=== PATIENT | female | born 1995 | race Caucasian/White ===

== ENCOUNTER 2016-08-31 14:35 | Observation (INO) ==
[2016-08-31] MEDS ORDERED: LACTATED RINGERS 1,000 ML IV ONE (15:18)
[2016-08-31] MEDS: LACTATED RINGERS 1,000 ML IV SCH ×2 (15:28→19:41)
[2016-08-31] MEDS ORDERED: TERBUTALINE 1 MG/1 ML VIAL SUBCUT ONE (15:35)
[2016-08-31 16:20] LABS: Amorphous Crystals,Urine Occasional /HPF (Few); Apearance,Urine Slightly Hazy (Clear); Bilirubin,Urine Negative (Negative); Blood, Urine Negative (Negative); Glucose,Urine (UA) Negative (Negative); Ketones,Urine Negative (Negative); Mucus,Urine Occasional /LPF (Occasional); Nitrite,Urine Negative (Negative); Protein,Urine Negative; RBC,Urine 1 /HPF (0-4); Urine Color Yellow (Yellow); Urine Specific Gravity 1.017 (1.001-1.035); Urine Urobilinogen < 2.0 EU/DL (0.2-1.0); WBC,Urine 2 /HPF (0-6)
[2016-08-31] MEDS: NIFEdipine 10 MG CAPSULE PO SCH ×2 (16:30→21:08)
[2016-08-31] MEDS ORDERED: ACETAMINOPHEN 500 MG TABLET PO PRN (16:59)
[2016-08-31] MEDS: BETAMETH SODIUM PHOS/ACETATE 30 MG/5 ML VIAL IM SCH (17:10)
[2016-08-31] MEDS ORDERED: MEPERIDINE 50 MG/1 ML VIAL IV PRN (18:11)
[2016-08-31] MEDS ORDERED: ONDANSETRON 4 MG/2 ML VIAL IV PRN (18:11)
[2016-08-31 18:31] LABS: Basophils # 0.1 10*3/uL (0.0-0.2); Basophils % 0.3 % (0.0-0.8); Eosinophils # 0.1 10*3/uL (0.0-0.87); Eosinophils % 0.5 % (0.00-10.9); Hemoglobin 12.1 GM/DL (12.0-16.0); Immature Granulocytes % 1.2 %; Immature Granulocytes Absolute 0.22 #; Lymphocytes # 1.4 10*3/uL (1.4-4.0); Lymphocytes % 7.4 % (21.3-54.2); Mean Corpuscular HGB Conc 34.6 GM/DL (32-36); Mean Corpuscular Hemoglobin 32 PG (27-34); Mean Corpuscular Volume 91.1 FL (87-102); Mean Platelet Volume 10.2 FL (9.6-12.0); Monocytes # 0.9 10*3/uL (0.11-0.8); Monocytes % 4.8 % (1.7-12.7); Neutrophils # 16.2 10*3/uL (1.4-7.4); Neutrophils % 85.8 % (38.7-73.9); Platelet Count 280 T/CUMM (130-400); Red Blood Count 3.84 MC/CUMM (3.8-5.5); Red Cell Distribution Width 13.4 % (9.3-17.3); White Blood Count 18.9 T/CUMM (4-12)
[2016-09-01] MEDS: NIFEdipine 10 MG CAPSULE PO SCH ×3 (00:36→08:35)
[2016-09-01] MEDS: LACTATED RINGERS 1,000 ML IV SCH (00:44)
[2016-09-01] MEDS: BETAMETH SODIUM PHOS/ACETATE 30 MG/5 ML VIAL IM SCH (05:28)
[2016-09-01 08:17] VITALS: BP 128/62
--- NOTE | 2016-09-01 09:21 | OB/GYN Progress Note ---
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 She was sent from clinic yesterday to be monitored for labor secondary to 4 cm dilated. After consultation with Dr. Pedro on yesterday, she recommend observe overnight , give rescue doses of steroids, continue Procardia and monitor for cervical change on today. Patient denies any vaginal bleeding, contractions, pressure, or decreased FM. She states she notices some contractions when she has a full bladder. She denies any other problems. Records available and reviewed, are current and up to date. ROS: Neuro negative, CV negative, GI negative, negative O: Alert, awake, and oriented x 3 HEENT WNL Lungs CTA bilaterally Heart NSR FHR Twin A @ 120s with spontaneous accelerations, no decelerations noted. Twin B FHR @ 115-120s with spontaneous accelerations, no decelerations noted. Category I FHR tracing. No contractions noted on monitor strip SVE 4 cm/ 50%/ -3 station- unchanged from yesterday A: IUP @ 34.0 wks, Category I FHR tracing, Twin Gestation, cervical change, H/O Delivery, Rescue Steroids provided, Stable P: Consulted with Dr. Pedro- recommended DC home today on bedrest, procardia 10 mg every 4 hours Dly FKC, PTL, and bleeding precautions discussed. Continue strict bedrest, no sex, nothing in vagina, no nipple stimulation Questions answered to desired level of satisfaction F/U for BPP and clinic visits as previously scheduled. Exam HEAD SETTER - Constitutional Vitals: Vital Signs Temp Pulse Resp BP 09/01/16 08:00 96.8 F L 60 18 128/62 09/01/16 04:00 97.2 F L 105 H 18 100/54 09/01/16 00:00 97.5 F L 86 20 122/72 08/31/16 20:00 97.2 F L 85 18 119/81 08/31/16 16:00 94 H 18 139/81 Results - Labs CBC & BMP: 08/31/16 18:22
== END 2016-09-01 10:37 | disposition home or self-care (01) ==
LOC: N.LDOUT 14:35 → N.LD 14:38 → INTOOBSV 18:12
PROVIDERS: ADMIT Obstetrics & Gynecology; ATTEND Nurse Practitioner Women's Health

== ENCOUNTER 2016-09-01 16:27 | Inpatient (IN) ==
[2016-09-01] MEDS ORDERED: ONDANSETRON 4 MG/2 ML VIAL IV PRN ×2 (16:32→21:12)
[2016-09-01] MEDS: CLINDAMYCIN INJ 900 MG in PREMIX 1 EACH IV SCH (16:57)
[2016-09-01 16:59] LABS: Basophils % 0.1 % (0.0-0.8); Hemoglobin 11.2 GM/DL (12.0-16.0); Immature Granulocytes % 3.1 %; Immature Granulocytes Absolute 0.57 #; Lymphocytes # 1.3 10*3/uL (1.4-4.0); Mean Corpuscular HGB Conc 33.9 GM/DL (32-36); Mean Corpuscular Hemoglobin 31 PG (27-34); Mean Corpuscular Volume 90.9 FL (87-102); Mean Platelet Volume 10.5 FL (9.6-12.0); Monocytes # 1.2 10*3/uL (0.11-0.8); Monocytes % 6.5 % (1.7-12.7); Neutrophils # 15.5 10*3/uL (1.4-7.4); Neutrophils % 83.3 % (38.7-73.9); Platelet Count 276 T/CUMM (130-400); Red Blood Count 3.63 MC/CUMM (3.8-5.5); Red Cell Distribution Width 13.3 % (9.3-17.3); White Blood Count 18.6 T/CUMM (4-12)
--- NOTE | 2016-09-01 17:00 | OB/GYN History & Physical ---
History of Present Illness Chief complaint: Complains of vaginal bleeding that started around 2:00 PM this evening History of present illness: Ms. Strauss is a 21 year old female who is a 2 Para 0101 that presented [ complaint of bright red vaginal bleeding that started around 2:00 PM. She indicated that her vaginal bleeding increased around 3:45 PM and she noticed dark red vaginal bleeding at that time. Patient states that she ate a pancake approximately around 2:00 PM this evening. She indicates she is feeling both babies move. She stated she noticed that her water broke around 4:20 PM while she was on the ambulance on the way to the hospital. She complains of some irregular cramping and contractions, she also complains of pressure, and dark red vaginal bleeding presently. Patient stated "I am scared". She is 34.0 weeks gestation today. She receives care at [facility] with [ Katharine Dyer CNM, TIM-ABBEY. She had a total of 15 visits and 6 ultrasounds. During the course of her she has [twin gestation which were dichorionic twin gestation with subchorionic hemorrhage early in the that resolved, previous smoker, explains bacterial vaginosis and treated with Flagyl, cervical change on 07/04/2018 and treated with Procardia 10 mg p.o. every 6 hours pelvic, [place] injections x 2, and [place] injections weekly, she has received biophysical profiles weekly that has been reassuring. She was in the hospital yesterday for complaint of contractions in which she was monitored overnight and discharged home this morning with no cervical change at 4 cm which was unchanged from yesterday. Her records are current, reviewed, and up to date. 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 She was treated for delivery, preeclampsia, advanced dilation , and IUGR. Genetic Hx: Noncontributory Social Hx: She was smoking early in she stopped during . She denies any alcohol use or drug use. Her child lives with her and her Family Hx: Hypertension noted with father, diabetes negative, heart disease negative, cancer negative Medications: Procardia 10 mg every 4 hours, vitamins, vitamin D, ferrous sulfate Labs: Blood type and RH O+, antibody screen negative, Rubella nonimmune, HIV negative, HBsAG negative, GC negative, Chlamydia negative, Diabetic Screen 174 with 3 hr gtt WNL, GBS unknown A: IUP @ 34.0 wks, Active Labor, Spontaneous onset of labor, Category I FHR tracing, Vaginal Bleeding, Twin Gestation, GBS unknown P: Dr. King consulted and requested to attend delivery. Admit patient, obtain admission labs. Start Clindamycin 900 mg every 8 hours. Notify nursery of labor of twin gestation active labor. Urine drug screen. Dr. King aware of plan of care and mutually agrees. Patient informed of plan of care. Questions answered to desired level of satisfaction. Home Medications Medication Instructions Recorded Confirmed Type Multivitamin () [ 1 tablet PO DAILY 02/03/15 08/31/16 History Vitamin] NIFEdipine CAP [Procardia] 10 mg PO Q6HR 08/22/16 08/31/16 History Allergies Allergy/AdvReac Type Severity Reaction Status Date / Time penicillin G Allergy Severe HIVES Verified 08/22/16 13:56 12 point system: reviewed and no additional remarkable complaints except as stated Medical,Surgical,& Family Hx - Medical History Cardio: History of: Hypertension (PRE-ECLAMPSIA) Other: History of: Miscellaneous Medical Problems (Gonorrhea, edema) - Surgical History Surgical History: noncontributory Cardiac Surgeries: Patient Denies: Cardiac Catheterization - Family History Family History: Reports;: Family Hypertension (Father) - Social History Smoking Status: Former smoker Have you smoked in the last 12 months: Yes Frequency of Alcohol Use: None Type of Drug Use: None Marital Status: Lives With:: Spouse 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 General appearance: mild distress - Antepartum / Post Antepartum Exam Cervix - Dilatation: 6 cm Effacement: 60% Station: -1 Rupture: Spontaneous rupture of membranes approximately at 3:45 PM Presentation: Twin A vertex, twin B vertex Heart Rate: heart tones twin A 130s, Twin B 130s with accelerations Category I [place]: Irregular, 30-40 seconds, mild Breast: bilateral: normal Abdomen obstetrics: Present: bowel sounds normal Vagina: Present: normal moisture Uterus exam: Present: enlarged (soft, gravid) Adnexa: bilateral: normal Anus/Rectum: Present: normal perianal skin - Head Head exam: Present: normal inspection - ENT ENT exam: Present: normal exam - Neck Neck exam: Present: normal inspection - Respiratory Respiratory exam: Present: clear to auscultation bilaterally - Breast Breasts: as per HPI - Cardiovascular Cardiovascular exam: Present: regular rate and rhythm - GI/Abdominal GI/Abdominal exam: Present: normal bowel sounds - Extremities Exam Extremities exam: Present: normal inspection, normal capillary refill, full ROM - Back Exam Back exam: Present: normal inspection - Neurological Exam Neurological exam: Present: alert, oriented X3, normal gait - Psychiatric Psychiatric exam: Present: normal affect, anxious - Skin Skin exam: Present: normal color, warm, dry Assessment and Plan (1) Twin gestation in third trimester Status: Acute Current Visit: Yes (2) Spontaneous rupture of membranes Status: Acute Current Visit: Yes (3) Spontaneous onset of labor Status: Acute Current Visit: Yes (4) Vaginal bleeding during , antepartum Status: Acute Current Visit: Yes Results - Diagnostic Findings Procedure: Ultrasound: pending (EFW Twin A 4# 6 oz, cephalic. Twin B- cephalic, EFW 4# 13 oz)
[2016-09-01] MEDS ORDERED: PROMETHAZINE 25 MG/1 ML VIAL IM ONE (17:20)
[2016-09-01] MEDS ORDERED: ePHEDrine 50 MG/ML AMP IV PRN (17:20)
[2016-09-01] MEDS ORDERED: diphenhydrAMINE 50 MG/1 ML VIAL IV PRN (17:20)
[2016-09-01] MEDS ORDERED: FAMOTIDINE 20 MG/2 ML VIAL IV ONE (17:20)
[2016-09-01] MEDS ORDERED: hydrOXYzine HCL 25 MG/1 ML VIAL IM PRN (17:20)
[2016-09-01] MEDS ORDERED: fentaNYL 2 MCG/ROPIV 0.2% EPID 150 ML EPIDURAL SCH (17:20)
[2016-09-01] MEDS ORDERED: CITRIC ACID/SODIUM CITRATE 30 ML UDCUP PO ONE (17:20)
[2016-09-01] MEDS: LACTATED RINGERS 1,000 ML IV SCH ×2 (17:30→18:47)
--- NOTE | 2016-09-01 17:31 | Ultrasound Report ---
Exam: US OB >= 14 weeks fetus Date: 09/01/2016 4:31 PM Indication: Premature rupture membranes twin Comparison: 08/31/2016 Findings: Twin A The fetus is in the vertex presentation with a posterior placenta present. BPD: 34 weeks 4 days Head circumference: 33 weeks 3 days Abdominal circumference: 31 weeks 5 days Femur length: 32 weeks 6 days Approximately 33 weeks 1 day gestation with estimated date of delivery of October 19, 2016 Amniotic fluid index: Largest pocket 9 mm Estimated weight: 1985 +/- 297.7 g or 4 lbs. 6 oz. Cervical length: Poorly visualized heart rate: 165 structures: Not evaluated. Maternal ovaries not evaluated .Findings: Twin B The fetus in the vertex presentation with posterior placenta. BPD: 34 weeks 1 day Head circumference: 34 weeks 3 days Abdominal circumference: 33 weeks 1 day Femur length: 33 weeks 0 days, approximately 33 weeks 5 day gestation with EDC of 10/15/2016 Amniotic fluid index: 9 mm largest pocket Estimated weight: 2170 +/- 3 25.46 g or 4 lbs. 13 oz. Cervical length: Poorly demonstrated heart rate: 134 structures: Not evaluated Impression: 1. Twin approximately 33 weeks 5 day gestation with estimated date of delivery of 10/15/2016 2. Findings suggest component of oligohydramnios with little fluid present. Ultrasound images were stored and captured PROCEDURE INTERPRETED AT [facility] DEPARTMENT OF RADIOLOGY Final Report Signed by: Dr. Jared Andrews
[2016-09-01] MEDS ORDERED: LACTATED RINGERS 1,000 ML IV ONE (17:32)
[2016-09-01 17:36] LABS: Apearance,Urine CLEAR (Clear); Urine Color Straw (Yellow); Urine Specific Gravity 1.005 (1.001-1.035)
[2016-09-01 17:37] LABS: Bilirubin,Urine Negative (Negative); Blood, Urine Trace mg/dL (Negative); Glucose,Urine (UA) Negative (Negative); Ketones,Urine Negative (Negative); Nitrite,Urine Negative (Negative); Protein,Urine Negative; RBC,Urine 0-3 /HPF (0-4); Urine Urobilinogen 0.2 EU/DL (0.2-1.0)
[2016-09-01 17:51] LABS: Barbiturates Screen,Urine Negative (Negative); Benzodiazepines Screen,Urine Negative (Negative); Cannabinoid Screen,Urine Negative (Negative); Opiate Screen,Urine Negative (Negative); Phencyclidine Screen,Urine Negative (Negative)
[2016-09-01] MEDS ORDERED: BUTORPHANOL 1 MG/ML VIAL ONE (18:06)
[2016-09-01] MEDS ORDERED: BUTORPHANOL 1 MG/ML VIAL IV ONE (18:29)
[2016-09-01 18:35] LABS: D-Dimer 1.1 MG/L FEU; INR 0.9; PT Patient Result 9.8 SECS; Partial Thromboplastin Time 28.5 SECS (0-40)
[2016-09-01 18:57] LABS: Band Neutrophils 1 % (0-10); Lymphocytes 6 % (20-55); Metamyelocytes 1 %; Platelet Estimate Normal; Segmented Neutrophils 90 % (50-85); Total Cells Counted 100
[2016-09-01] MEDS ORDERED: miSOPROStol 200 MCG TABLET ONE (19:21)
[2016-09-01] MEDS ORDERED: LIDOCAINE 1% 50 ML VIAL ONE (19:21)
[2016-09-01] MEDS ORDERED: METHYLERGONOVINE 0.2 MG/1 ML AMP ONE (19:21)
[2016-09-01] MEDS ORDERED: OXYTOCIN/LR 20 UNIT/1,000 ML BAG IV ONE ×4 (19:31→22:40)
[2016-09-01] MEDS ORDERED: OXYTOCIN/LR 20 UNIT/1,000 ML BAG IV SCH (19:32)
--- NOTE | 2016-09-01 19:34 | OB/GYN Progress Note ---
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 Epidural inserted. O: IUPC inserted previously by Dr. King A: IUP @ 34.0 wks, Category I FHR tracing, Twin gestation, unknown GBS, Epidural placed P: Augment with Pitocin per Dr. King's recommendations. Continue to monitor maternal and status. Reposition for comfort. Exam TECHNICAL MARKETING CONSULTANT - Antepartum / Post Antepartum Exam Cervix - Dilatation: 6-7 cm Effacement: 80% Station: 0 Rupture: ruptured Presentation: vtx Heart Rate: FHR Twin A @ 120s with accelerations, FHTs Twin B 120s with accels [place]: every 2-4 min/ 40-50 sec/ mod. IUPC intact Results - Labs CBC & BMP: 09/01/16 16:50
[2016-09-01] MEDS ORDERED: WITCH HAZEL PADS 100/JAR TOP PRN (21:12)
[2016-09-01] MEDS ORDERED: DIPH/TET/ACEL PERT BOOSTER VACCINE 0.5 ML VIAL IM ONE (21:12)
[2016-09-01] MEDS ORDERED: HYDROCORTISONE 2.5% RECTAL CREAM 30 GM TUBE TOP PRN (21:12)
[2016-09-01] MEDS ORDERED: LANOLIN 50% CREAM 0.3 OZ TUBE TOP PRN (21:12)
[2016-09-01] MEDS ORDERED: BENZOCAINE 20%/MENTHOL 0.5% SPRAY 56 GM CAN TOP PRN (21:12)
[2016-09-01] MEDS ORDERED: MEASLES/MUMPS/RUBELLA VACCINE 0.5 ML VIAL SUBCUT ONE (21:12)
[2016-09-01] MEDS ORDERED: ACETAMINOPHEN 325 MG TABLET PO PRN (21:12)
[2016-09-01] MEDS ORDERED: BISACODYL 10 MG SUPP RECTAL PRN (21:12)
[2016-09-01] MEDS ORDERED: oxyCODONE/ACETAMINOPHEN 5-325 MG TABLET PO PRN (21:12)
[2016-09-01] MEDS ORDERED: RHO(D) IMMUNE GLOBULIN 300 MCG SYRINGE IM ONE (21:12)
--- NOTE | 2016-09-01 21:24 | Operative Note ---
Date of procedure: 09/01/16 Pre-op diagnosis: Twin 34 weeks, PROM, marginal abruption Post-op diagnosis: same Procedure: Vaginal twin delivery The patient was prepped and draped in the dorsal lithotomy position. The first twin's head was noted to be at a +2-+3 station. A mighty Vac was applied to the head and expulsive efforts and encouraged him to have guided to the introitus and the mighty VAC removed. The head was delivered with the next contraction in the nasopharynx suctioned of bloody amniotic fluid. Remainder of the was promptly delivered and the cord And transferred to the warmer. Cord pH and cord blood specimens were obtained. The position of the second was palpated and was noted to be transverse, favoring vertex. Amniotomy was performed again and the head pushed downward with abdominal pressure until the head could be stabilized. Mighty VAC was applied to the second head and the delivered with 2 contractions. Cord was clamped and cut and the transferred to the warmer for further care. Cord blood specimens again have been obtained along with cord gases. Placenta spontaneously and was delivered with Brander's maneuver, and appeared fused. Pitocin was administered and uterine massage performed. Cervix vagina and perineum and vulva were inspected and there were no lacerations or abrasions. No repair was required. Surgeon / Physician: Jared King Estimated blood loss: other (300 cc) Specimens: other Disposition: post procedure unit Results - Labs CBC & BMP: 09/01/16 16:50 Discharge Plan - Discharge Medications No Action Multivitamin () [ Vitamin] 1 tablet PO DAILY NIFEdipine CAP [Procardia] 10 mg PO Q6HR - Follow Up or Referral - Forms/Instructions
[2016-09-01 21:45] LABS: Cord Arterial Blood HCO3 25.6 MMOL/L
[2016-09-01 21:48] LABS: Cord Venous Blood HCO3 24.2 MMOL/L; Cord Venous Blood PCO2 48.2 MMHG; Cord Venous Blood PO2 16.8 MMHG
[2016-09-01 21:51] LABS: Cord Arterial Blood HCO3 25.3 MMOL/L
[2016-09-01 21:54] LABS: Cord Venous Blood HCO3 23.5 MMOL/L; Cord Venous Blood PCO2 45.3 MMHG; Cord Venous Blood PO2 19.1 MMHG
[2016-09-01] MEDS: oxyCODONE/ACETAMINOPHEN 5-325 MG TABLET PO PRN (23:54)
[2016-09-02] MEDS: IBUPROFEN 800 MG TABLET PO PRN ×3 (04:19→18:38)
[2016-09-02 05:30] LABS: Basophils % 0.1 % (0.0-0.8); Eosinophils % 0.1 % (0.00-10.9); Hemoglobin 9.6 GM/DL (12.0-16.0); Immature Granulocytes Absolute 0.18 #; Lymphocytes # 1.9 10*3/uL (1.4-4.0); Mean Corpuscular HGB Conc 34.3 GM/DL (32-36); Mean Corpuscular Hemoglobin 32 PG (27-34); Mean Corpuscular Volume 92.7 FL (87-102); Mean Platelet Volume 10.7 FL (9.6-12.0); Monocytes # 1.2 10*3/uL (0.11-0.8); Neutrophils % 80.8 % (38.7-73.9); Platelet Count 207 T/CUMM (130-400); Red Blood Count 3.02 MC/CUMM (3.8-5.5); Red Cell Distribution Width 13.6 % (9.3-17.3); White Blood Count 17.3 T/CUMM (4-12)
[2016-09-02] MEDS: CLINDAMYCIN INJ 900 MG in PREMIX 1 EACH IV SCH (06:44)
--- NOTE | 2016-09-02 07:06 | Anesthesia Post-Op ---
Anesthesia Post OP - Post Ansesthetic Evaluation Patient seen in post op: Yes Resp: within normal limits CV: within normal limits Mental: within normal limits Temp: within normal limits [id number]: within normal limits Nausea and Vomiting: within normal limits Pain: within normal limits
[2016-09-02] MEDS: oxyCODONE/ACETAMINOPHEN 5-325 MG TABLET PO PRN ×3 (07:36→20:10)
[2016-09-02] MEDS: MULTIVITAMIN (PRENATAL) TABLET PO SCH (08:36)
[2016-09-02] MEDS: DOCUSATE SODIUM 100 MG CAPSULE PO SCH ×2 (08:36→20:00)
--- NOTE | 2016-09-02 16:27 | OB/GYN Progress Note ---
Assessment and Plan (1) Twin delivered vaginally Status: Acute Assessment and plan: Routine care. 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 Exam RED MUD THICKENER OPERATOR - Constitutional Vitals: Vital Signs Temp Pulse Resp BP Pulse Ox 09/02/16 12:00 97.1 F L 82 19 109/59 09/02/16 07:48 97.7 F 68 18 105/61 09/02/16 07:44 68 18 09/02/16 07:42 18 09/02/16 04:19 97.1 F L 09/02/16 04:00 97.1 F L 62 16 123/71 98 09/02/16 02:53 97.0 F L 75 18 95/48 100 09/02/16 02:04 97.1 F L 67 18 114/59 99 09/02/16 00:44 97.7 F 83 18 115/62 99 09/02/16 00:00 97.7 F 80 18 117/57 09/01/16 20:00 97.5 F L 96 H 22 118/57 99 General appearance: no acute distress - Head Head exam: Present: normocephalic - Neck Neck exam: Present: normal inspection - Respiratory Respiratory exam: Present: clear to auscultation bilaterally. Absent: accessory muscle use - GI/Abdominal GI/Abdominal exam: Present: normal bowel sounds, soft. Absent: guarding, rebound - Extremities Exam Extremities exam: Present: normal inspection - Back Exam Back exam: Present: normal inspection - Skin Skin exam: Present: normal color, warm, dry Results - Labs CBC & BMP: 09/02/16 05:24
[2016-09-03] MEDS: oxyCODONE/ACETAMINOPHEN 5-325 MG TABLET PO PRN ×4 (02:20→22:40)
[2016-09-03] MEDS: IBUPROFEN 800 MG TABLET PO PRN ×2 (09:51→16:51)
[2016-09-03] MEDS: MULTIVITAMIN (PRENATAL) TABLET PO SCH (09:52)
[2016-09-03] MEDS: DOCUSATE SODIUM 100 MG CAPSULE PO SCH ×2 (09:52→22:40)
--- NOTE | 2016-09-03 12:38 | OB/GYN Progress Note ---
Assessment and Plan (1) Twin delivered vaginally Status: Acute Assessment and plan: Routine care. 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 Exam PRODUCT SAFETY PROFESSIONAL - Constitutional Vitals: Vital Signs Temp Pulse Resp BP Pulse Ox 09/03/16 12:00 97.8 F 89 20 134/75 96 09/03/16 08:00 97.2 F L 78 16 120/65 97 09/03/16 04:00 96.8 F L 79 18 120/67 96 09/03/16 00:00 98.1 F 80 18 121/64 97 09/02/16 20:00 98.3 F 100 H 18 138/85 97 09/02/16 16:00 97.8 F 85 18 120/73 98 General appearance: mild distress - Head Head exam: Present: normal inspection - ENT ENT exam: Present: normal exam - Neck Neck exam: Present: normal inspection - Respiratory Respiratory exam: Present: clear to auscultation bilaterally. Absent: accessory muscle use - Breast Breasts: as per HPI - GI/Abdominal GI/Abdominal exam: Present: normal bowel sounds, soft (fundus tonic). Absent: guarding, tenderness, rebound - Extremities Exam Extremities exam: Present: normal inspection Results - Labs CBC & BMP: 09/02/16 05:24
[2016-09-04] MEDS: oxyCODONE/ACETAMINOPHEN 5-325 MG TABLET PO PRN ×2 (08:57→14:08)
[2016-09-04] MEDS: MULTIVITAMIN (PRENATAL) TABLET PO SCH (08:58)
[2016-09-04] MEDS: IBUPROFEN 800 MG TABLET PO PRN ×2 (08:59→14:07)
[2016-09-04] MEDS: DOCUSATE SODIUM 100 MG CAPSULE PO SCH (08:59)
[2016-09-04 11:35] VITALS: BP 115/74
--- NOTE | 2016-09-04 15:54 | Discharge Summary ---
Hospital Course - Hospital Course Hospital Course: This patient was admitted at 34 weeks gestation, with a known twin gestation with spontaneous rupture of membranes and onset of labor. Her labor progressed well without maternal or distress. Both infants were delivered vaginally from the vertex presentation. Patient did not experience any lacerations or complications from the delivery. Both babies are still in the NICU for prematurity but are doing well. She is discharged today in satisfactory condition. Diagnosis - Discharge Diagnosis (1) Twin delivered vaginally Status: Acute Specialty Discharge - Follow Up or Referrals Follow up with: Katharine Dyer CFNP [Advanced Practice Nurse] - 2 Weeks (Call on Monday to make a 2 week follow up appointment.) Discharge Plan - Discharge Medications New Ibuprofen 600 mg PO Q4-6H PRN #30 tablet PRN Reason: Pain HYDROcodone/ACETAMIN 5-325 [[place] 5-325] 1 - 2 tablet PO Q6H PRN #30 tablet PRN Reason: Pain Severe (8-10) No Action Multivitamin () [ Vitamin] 1 tablet PO DAILY NIFEdipine CAP [Procardia] 10 mg PO Q6HR - Follow Up or Referral Follow Up: Katharine Dyer CFNP [Advanced Practice Nurse] - 2 Weeks (Call on Monday to make a 2 week follow up appointment.) - Forms/Instructions Instructions: Vaginal Delivery (DC), Bleeding (DC) Exam - Constitutional Vitals: Period Temp Pulse Resp BP Sys/Barrios Pulse Ox Last 24 Hr 96.7 F-98.3 F 70-91 14-20 104-134/56-78 96-99 General appearance: no acute distress - Head Head exam: Present: normal inspection - Neck Neck exam: Present: normal inspection - Respiratory Respiratory exam: Present: clear to auscultation bilaterally. Absent: accessory muscle use - Cardiovascular Cardiovascular exam: Present: regular rate and rhythm - GI/Abdominal GI/Abdominal exam: Present: normal bowel sounds, soft. Absent: tenderness - Extremities Exam Extremities exam: Absent: edema - Back Exam Back exam: Present: normal inspection - Neurological Exam Neurological exam: Present: alert, oriented X3 - Psychiatric Psychiatric exam: Present: normal affect, normal mood - Skin Skin exam: Present: normal color, warm, dry DS: Provider Date of admission: 09/01/16 16:32 Primary care physician: Katharine Dyer CNM Attending physician on admission: Jared King DO Consults: 09/01/16 21:13 Consult to Tie Binder [CONS] Routine Consult Tie Binder: Breast Feeding Discharging clinician: Jared iKng DO Expected date of discharge: 09/04/16
--- NOTE | 2016-09-06 11:19 | Pathology Report from [facility] ---
[facility] ACCESSION # : [id number] PATIENT NAME : Priscilla Pathak ORDERING DR : JONATAN DICKSON DO CLINICAL HX: Twin gestation IUP @ 34 wks gestation, labor, PROM POST-OP DX: Same SPECIMEN INFO: Placenta GROSS DESCRIPTION: The specimen is received fresh labeled PRISCILLA PATHAK and consists of a fused twin placenta with separate amniotic sacs. Following separation, placenta A weighs 299.0 gm and measures 17.0 x 10.0 x 3.0 cm. The membranes are munguia and translucent. The umbilical cord measures 13.5 cm and has a single attached surgical clamp. The cord measures three vessels and is marginally inserted. The surface is blue-to and intact. The maternal displays intact hemorrhagic cotyledons. No abnormalities appreciated upon sectioning. Placenta sections submitted: (A) membranes and cord and (B) and maternal surfaces.Placenta B weighs 281.0 gm and measures 17.0 x 9.0 x 2/9 cm. membranes are munguia and translucent. The umbilical cord measures 22.0 cm and has two attached clamps. The cord contains three vessels and is eccentrically inserted. The surface is blue-to and intact. The maternal surface is red -to and intact. No abnormalities appreciated upon sectioning. Sections submitted for placenta B: (C) membranes and cord, (D) and maternal surfaces and (E) divided membrane. DIAGNOSIS FOR PRISCILLA PATHAK: Diamniotic monochorionic twin placentas (A & B): PLACENTA A: Focal placental infarction with dystrophic calcification, mild intervillous blood; tri-vessel umbilical cord, marginally inserted; membranes with focal chronic inflammation and attached blood.PLACENTA B: Focal placental infarction, mild intervillous blood; tri-vessel umbilical cord, eccentrically inserted; membranes with focal chronic inflammation and attached blood. COLLECTED DATE: 09/05/2016 [facility] REPORT DATE: 09/06/2016 ELECTRONICALLY SIGNED BY: Perla Uribe M.D. 09/06/2016 - 8:59:17 FAR[place]A
== END 2016-09-04 18:30 | disposition home or self-care (01) | DRG 560 ==
LOC: N.LDOUT 16:27 → N.LD 16:29 → N.OB 09-02 16:02
PROVIDERS: ADMIT Obstetrics & Gynecology; ATTEND Obstetrics & Gynecology